=== PATIENT | male | born 1960 | race Caucasian/White ===

== ENCOUNTER 2019-06-14 11:33 | Emergency (ER) | payer BC ==
[2019-06-14 13:15] VITALS: BP 146/79
--- NOTE | 2019-06-14 13:45 | UC ---
Respiratory Complaint HPI - HPI Summary HPI Summary: 58 year old male with PMH + for elevated cholesterol, presents with mild cough x 3 week. wanted to get checked out. No h/o fever, chills, lightheadedness, ear/ nose / throat pain. 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 Not bringing up anything. - History of Current Complaint Chief Complaint: UCRespiratory Stated Complaint: COUGH Time Seen by Provider: 06/14/19 13:11 Hx Obtained From: Patient Onset/Duration: Lasting Weeks Severity Currently: None Pain Intensity: 0 Pain Scale Used: 0-10 Numeric Character: Cough: Productive Associated Signs And Symptoms: Negative: Dyspnea, Fever, Chills, Hemoptysis, Dizziness, Calf Pain, Calf Swelling, URI, Nasal Congestion - Allergies/Home Medications Allergies/Adverse Reactions: Allergies Allergy/AdvReac Type Severity Reaction Status Date / Time No Known Allergies Allergy Verified 06/14/19 13:11 Home Medications: Home Medications Atorvastatin* [Lipitor 10 MG*] 5 mg PO DAILY 06/14/19 [History Confirmed ] Benzonatate CAP* [Tessalon 100 MG CAP*] 100 mg PO TID PRN #60 cap 06/14/19 [Rx] PMH/Surg Hx/FS Hx/Imm Hx Previously Healthy: Yes Cardiovascular History: Other - elevated cholesterol - Surgical History Surgical History: Yes Surgery Procedure, Year, and Place: back x 2, ~2003, 2005 - Family History Known Family History: Positive: Other, Non-Contributory - Social History Occupation: Employed Full-time Alcohol Use: None Substance Use Type: None Smoking Status (MU): Former Smoker - 40 year ago When Did the Patient Quit Smoking/Using Tobacco: 40 years ago Review of Systems All Other Systems Reviewed And Are Negative: Yes Constitutional: Positive: Negative. Negative: Fever, Chills, Fatigue Skin: Negative: Rash ENT: Negative: Sore Throat, Ear Ache, Nasal Discharge, Sinus Congestion, Sinus Pain/Tenderness Respiratory: Positive: Cough. Negative: Shortness Of Breath Cardiovascular: Negative: Palpitations, Chest Pain Neurovascular: Positive: Negative Neurological/Mental Status: Positive: Negative Psychological: Positive: Negative Is Patient Immunocompromised?: No Physical Exam Triage Information Reviewed: Yes Appearance: Well-Appearing, No Pain Distress, Well-Nourished Vital Signs: Initial Vital Signs Temp 98.3 F 06/14/19 13:13 Pulse 70 06/14/19 13:13 Resp 16 06/14/19 13:13 BP 146/79 06/14/19 13:13 Pulse Ox 99 06/14/19 13:13 Vital Signs Reviewed: Yes Eyes: Positive: Conjunctiva Clear ENT: Positive: Hearing grossly normal, Pharynx normal, TMs normal, Uvula midline. Negative: TM bulging, TM dull, Tonsillar swelling, Tonsillar exudate, Sinus tenderness Neck: Positive: Supple, Nontender, No Lymphadenopathy. Negative: Nuchal Rigidity, Enlarged Nodes @ Respiratory: Positive: Chest non-tender, Lungs clear, Normal breath sounds, No respiratory distress, No accessory muscle use. Negative: Respiratory distress, Crackles, Rhonchi, Stridor, Wheezing, Expiration Cardiovascular: Positive: RRR, No Murmur Psychological Exam: Normal Skin Exam: Normal Respiratory Course/Dx - Course Course Of Treatment: Bronchospasm vs mild bronchitis - Tessalon perles as needed every 8 hours - Increase fluid intake - Over the counter medications as needed for cough, cough drops to keep mucous membranes moist. - If fever, chills, increased coughing occur, please follow up for further exam. - No work note given - discussed CXR, steroids, declined due to lack of symptoms - Differential Dx/Diagnosis Differential Diagnosis/HQI/PQRI: Bronchitis, Laryngitis Provider Diagnosis: Bronchitis Discharge ED - Sign-Out/Discharge Documenting (check all that apply): Patient Departure All imaging exams completed and their final reports reviewed: No Studies - Discharge Plan Condition: Good Disposition: HOME Prescriptions: Benzonatate CAP* [Tessalon 100 MG CAP*] 100 mg PO TID PRN #60 cap PRN Reason: Cough Patient Education Materials: Bronchospasm (ED) Referrals: Haleigh TERRY,Best Montiel [Primary Care Provider] - Additional Instructions: - Tessalon perles as needed every 8 hours - Increase fluid intake - Over the counter medications as needed for cough, cough drops to keep mucous membranes moist. - If fever, chills, increased coughing occur, please follow up for further exam. - No work note given - - Billing Disposition and Condition Condition: GOOD Disposition: Home
== END 2019-06-14 13:42 | disposition home or self-care (01) ==
LOC: UCCORT 11:33
DX: J40 Bronchitis, not specified as acute or chronic (principal); E78.00 Pure hypercholesterolemia, unspecified; Z79.899 Other long term (current) drug therapy; Z87.891 Personal history of nicotine dependence
CPT/HCPCS: 99202; G0463